=== PATIENT | female | born 1980 | race Caucasian/White ===

== ENCOUNTER 2023-04-10 18:11 | Emergency (ER) | payer BC, SELFPAY ==
[2023-04-10] VITALS (16 sets, daily range): BP systolic 91–101; BP diastolic 56–68; PULSE 71–86; RESP 14; TEMP 37.5; O2SAT 96–99; BMI 19.7
--- NOTE | 2023-04-10 18:22 | ED.GENADULT ---
HPI - General Adult General Chief complaint: Syncope/Fainted Stated complaint: Fall-hit head Time Seen by Provider: 04/10/23 18:22 Source: patient Mode of arrival: EMS Limitations: no limitations History of Present Illness HPI narrative: 42-year-old female coming in today after syncopal episode. Patient and her read a restaurant about to order dinner when she felt nauseated and did feel good. They decided to leave and when she stood up she felt her vision go woozy and she fainted. Her was able to catch her somewhat however, she did hit her head on the way down. She is complaining of a headache. This occurred approximately 1 hour ago. She is not on any blood thinners. She does have a history of eating disorder, anxiety and alcohol use disorder. She does tell me that she has been drinking today. states he believes she has had 3 drinks today. She denies any chest pain now or when this occurred, no shortness of breath, no abdominal discomfort. No ringing in her ears. She states that syncope like this has never happened to her before. Related Data Home Medications Medication Instructions Recorded Confirmed zgdwfdbdlmhu-Ez-yytj-minerals 1 tab PO DAILY 08/22/21 04/10/23 Previous Rx's Medication Instructions Recorded tretinoin 0.025 % topical cream 1 applic topical .Bedtime #20 grams 12/23/22 escitalopram oxalate 10 mg tablet 15 mg (1.5 x 10 mg) PO QDAY #135 03/30/23 tabs Allergies Allergy/AdvReac Type Severity Reaction Status Date / Time No Known Allergies Allergy Unknown Verified 08/23/22 09:38 Review of Systems Status of ROS: Reports: 10 or more systems reviewed and unremarkable except as noted in History and below [facility] Medical History Lump of right breast ?N63.10 - Unspecified lump in the right breast, unspecified quadrant (ICD-10) Surgical History Status post dilation and curettage ?Z98.890 - Other specified postprocedural states (ICD-10) Family History Other Colon cancer Diabetes Leukemia Social History Narrative: Alcohol consumption binge drinking Smoking Status: Never smoker How often do you have a drink containing alcohol: never AUDIT-C Alcohol total score: 0 Non-prescribed substance use: denies use Exam Narrative: Exam Narrative: Well-nourished well-developed patient who looks older than stated age, in no acute distress. Alert and oriented x3. Answers questions appropriately. She does appear to be intoxicated. Thoughts are goal oriented and rational. No tangential or magical thinking noted. Patient speaks in full sentences without needing to catch her breath. Her speech is slurred. HEENT: Normocephalic. Pupils are equally round reactive to light. Extraocular muscles are intact. Conjunctivae are moist and glassy without any icterus noted. Dry mucous membranes. Posterior pharynx is normal. Neck is soft without any lymphadenopathy or thyromegaly. No masses are appreciated. Over the right parietal area she has a small hematoma. Overlying the hematoma is a very small superficial laceration that does not penetrate through the dermis - this small area of broken skin, currently not bleeding. Cardiovascular: Heart is regular rate and rhythm S1 and S2 are present without any murmurs. Lungs: Clear to auscultation bilaterally no wheezes rhonchi or rales are appreciated. Patient takes deep breaths without any discomfort. Abdomen: Soft and nontender nondistended with normal bowel sounds. No guarding or rebound. Extremities: Bilateral lower extremities are without edema. Skin: Well perfused without any obvious rashes. Const: Vital Signs, click to edit/add: Vital Signs - 24 hr 04/10/23 18:16 04/10/23 18:28 04/10/23 18:32 Temperature 99.5 F Pulse Rate 78 Pulse Rate [Pulse Oximeter] 76 Pulse Rate [orthos tatic lying Right Pulse Oximeter] Pulse Rate [orthos tatic sitting Puls e Oximeter] Pulse Rate [orthos tatic standing Rig ht Pulse Oximeter] Respiratory Rate 14 14 Blood Pressure 101/59 L Blood Pressure [Ri ght Upper Arm] 101/68 Blood Pressure [or thostatic lying Ri ght Arm] Blood Pressure [or thostatic sitting Right Arm] Blood Pressure [or thostatic standing Right Arm] Pulse Oximetry 97 98 97 Oxygen Delivery Me thod Room Air 04/10/23 19:01 04/10/23 19:30 04/10/23 19:31 Temperature Pulse Rate 77 77 77 Pulse Rate [Pulse Oximeter] Pulse Rate [orthos tatic lying Right Pulse Oximeter] Pulse Rate [orthos tatic sitting Puls e Oximeter] Pulse Rate [orthos tatic standing Rig ht Pulse Oximeter] Respiratory Rate 14 Blood Pressure 96/61 94/59 L Blood Pressure [Ri ght Upper Arm] Blood Pressure [or thostatic lying Ri ght Arm] Blood Pressure [or thostatic sitting Right Arm] Blood Pressure [or thostatic standing Right Arm] Pulse Oximetry 97 96 97 Oxygen Delivery Mo thod 04/10/23 19:39 04/10/23 19:41 04/10/23 19:43 Temperature Pulse Rate 72 77 74 Pulse Rate [Pulse Oximeter] Pulse Rate [orthos tatic lying Right Pulse Oximeter] Pulse Rate [orthos tatic sitting Puls e Oximeter] Pulse Rate [orthos tatic standing Rig ht Pulse Oximeter] Respiratory Rate Blood Pressure 95/62 93/56 L 91/57 L Blood Pressure [Ri ght Upper Arm] Blood Pressure [or thostatic lying Ri ght Arm] Blood Pressure [or thostatic sitting Right Arm] Blood Pressure [or thostatic standing Right Arm] Pulse Oximetry 98 97 99 Oxygen Delivery Mo thod 04/10/23 19:45 04/10/23 19:45 Temperature Pulse Rate 72 Pulse Rate [Pulse Oximeter] Pulse Rate [orthos tatic lying Right Pulse Oximeter] 71 Pulse Rate [orthos tatic sitting Puls e Oximeter] 86 Pulse Rate [orthos tatic standing Rig ht Pulse Oximeter] 79 Respiratory Rate Blood Pressure Blood Pressure [Ri ght Upper Arm] Blood Pressure [or thostatic lying Ri ght Arm] 95/62 Blood Pressure [or thostatic sitting Right Arm] 93/56 L Blood Pressure [or thostatic standing Right Arm] 91/57 L Pulse Oximetry 97 Oxygen Delivery Mo thod Course Course ED Course: EKG, read by me, shows normal sinus rhythm, pulse 84, inverted P waves in V1 and V2. IV is established and patient given a L of normal saline. Given the hematoma on her scalp, we did proceed with a head CT which is unremarkable. Labs were unremarkable. Patient had no evidence of orthostatic hypotension. Blood pressure did remain slightly low but patient was asymptomatic. Blood alcohol level elevated at 0.13. Vital Signs Vital signs: Initial Vital Signs Temperature 99.5 F 04/10/23 18:16 Temperature Source Temporal Artery Scan 04/10/23 18:16 Pulse Rate 76 04/10/23 18:16 Pulse Rhythm Regular 04/10/23 18:16 Respiratory Rate 14 04/10/23 18:16 Blood Pressure 101/68 04/10/23 18:16 Blood Pressure Mean 79 04/10/23 18:16 Blood Pressure Position Supine 04/10/23 18:16 Pulse Oximetry 97 04/10/23 18:16 Oxygen Delivery Method Room Air 04/10/23 18:16 Vital Signs Temperature 99.5 F 04/10/23 18:16 Pulse Rate 76 04/10/23 18:16 Respiratory Rate 14 04/10/23 18:16 Blood Pressure 101/68 04/10/23 18:16 Pulse Oximetry 97 04/10/23 18:16 Oxygen Delivery Method Room Air 04/10/23 18:16 Temperature 99.5 F 04/10/23 18:16 Pulse Rate 71 04/10/23 19:45 Respiratory Rate 14 04/10/23 19:01 Blood Pressure 95/62 04/10/23 19:45 Pulse Oximetry 96 04/10/23 19:50 Oxygen Delivery Method Room Air 04/10/23 18:16 Medications Administered Medications: Discontinued Medications Generic Name Dose Route Start Last Admin Trade Name Freq PRN Reason Stop Dose Admin Sodium Chloride 1,000 mls @ 1,000 mls/hr 04/10/23 18:30 04/10/23 19:59 0.9 % Sodium Chloride 1000 Ml IV 04/10/23 19:29 Infused .Q1H MILAGRO Infusion Ketorolac Tromethamine 30 mg 04/10/23 18:28 04/10/23 18:52 Ketorolac 30 Mg/Ml Inj IVP 04/10/23 18:29 30 mg ONCE ONE Administration Medical Decision Making MDM Narrative Medical decision making narrative: 42-year-old female status post syncopal episode, acute alcohol intoxication. We discussed rest and hydration today. Patient had no other questions. Lab Data Lab results reviewed: Yes I reviewed the patient's lab results Labs: Lab Results 04/10/23 Range/Units 18:50 WBC 8.83 (4.50-11.00) K/uL RBC 4.36 (4.00-5.20) m/uL Hgb 13.1 (12.0-16.0) gm/dL Hct 38.5 (33.0-51.0) % MCV 88 (80-100) fL MCH 30 (26-34) pg MCHC 34 (32-36) gm/dL RDW Coeff of Lupe 12.7 (11.5-15.5) % Plt Count 232 (140-440) K/uL Neut % (Auto) 77.0 H (42.0-72.0) % Lymph % (Auto) 16.2 L (20-44) % Terry % (Auto) 5.4 (0.0-11.0) % Eos % (Auto) 0.9 (0.0-7.0) % Baso % (Auto) 0.3 (0.0-3.0) % Neut # (Auto) 6.80 (1.7-7.0) K/uL Lymph # (Auto) 1.40 (0.90-2.90) K/uL Terry # (Auto) 0.50 (0.00-0.90) K/UL Eos # (Auto) 0.08 (0.00-0.50) K/uL Baso # (Auto) 0.03 (0.00-0.30) K/uL Abs Immat Gran (auto) 0.02 (0.00-0.30) K/uL Imm/Tot Granulo (auto) 0.2 % Sodium 135 (135-149) mmol/L Potassium 3.6 (3.6-5.1) mmol/L Chloride 102 (96-114) mmol/L Carbon Dioxide 24 (20-32) mmol/L Anion Gap 9 (7-15) mEq/L BUN 14 (5-24) mg/dL Creatinine 0.7 (0.5-1.5) mg/dL Estimated Creat Clear 90.53 Estimated GFR 110 ml/min Glucose 114 (60-115) mg/dL Calcium 8.6 (8.4-10.6) mg/dL Ethyl Alcohol 0.13 H (0.01-0.03) % Imaging Data CT scan - head: Attestation: I have reviewed the pertinent imaging results. Radiologist's impression: Noncontrast head CT. COMPARISON: No prior. FINDINGS: Small area of extracranial soft tissue swelling in the right parietal region. No underlying acute skull fracture. There is no acute intracranial hemorrhage or acute ischemic infarct. No mass effect or midline shift. No hydrocephalus. No acute loss of bolaños-white differentiation. The mastoid air cells are clear. Paranasal sinuses are clear. IMPRESSION: 1. Small area of extracranial soft tissue swelling in the right parietal region. 2. No underlying acute skull fracture. 3. No acute intracranial injury or disease. ECG Data Attestation: I personally reviewed and interpreted this ECG as follows: Discharge Plan Discharge Clinical Impression: Closed head injury, Syncope, Acute alcohol intoxication Patient Disposition: Home, Self-Care Condition: Stable Additional Instructions: No abnormalities noted on your workup today. Blood alcohol level was elevated at 0.13. As far as the small cut on the back of the head, take a warm shower and clean with warm soapy water today. Should start to bleed again just apply gentle pressure to the back of the head. There is nothing there that needed suturing. Rest today, eat nutritious meals and stay well hydrated. Prescriptions: No Action kllvvxekxdjc-Hk-fxhx-minerals Tablet 1 tab PO DAILY tretinoin 0.025 % cream 1 applic topical .Bedtime Qty: 20 0RF Rx Instructions: Apply after gentle skin cleansing. Avoid excess sunlight. escitalopram oxalate 10 mg tablet 15 mg PO QDAY Qty: 135 0RF Follow Up/Referrals: Concepcion Santoyo DIRECTOR OF BUSINESS DEVELOPMENT [Nurse Practitioner] - Stand Alone Forms: MyHealth Info Instructions
--- NOTE | 2023-04-10 18:28 | CT_ITS ---
Final Report Patient: NORMA PARNELL Facility:?[facility] Patient ID:?[id number] Site Patient ID:?[id number]. Site :?[id number] Study:?CT Head WITHOUT-04/10/2023 6:44:16 PM Ordering Physician:TONNY Final Report: HISTORY: Fall. TECHNIQUE: Noncontrast head CT. COMPARISON: No prior. FINDINGS: Small area of extracranial soft tissue swelling in the right parietal region. No underlying acute skull fracture. There is no acute intracranial hemorrhage or acute ischemic infarct. No mass effect or midline shift. No hydrocephalus. No acute loss of bolaños-white differentiation. The mastoid air cells are clear. Paranasal sinuses are clear. IMPRESSION: 1. Small area of extracranial soft tissue swelling in the right parietal region. 2. No underlying acute skull fracture. 3. No acute intracranial injury or disease. Dictated by Michael White MD @ 04/10/2023 7:00:48 PM Please note that all CT scans at this facility use dose modulation, iterative reconstruction, and/or weight-based dosing when appropriate to reduce radiation dose to as low as reasonably achievable. Dictated by: iMchael White MD @ 04/10/2023 19:00:54 (Electronic Signature)
[2023-04-10] MEDS: 0.9 % SODIUM CHLORIDE 1000 ml 1,000 ML IV (18:52)
[2023-04-10] MEDS: KETOROLAC 30 MG/ML inj IVP (18:52)
[2023-04-10 19:01] LABS: Basophils Absolute Auto 0.03 K/uL (0.00-0.30); Basophils Percent Auto 0.3 % (0.0-3.0); Eosinophils Absolute Auto 0.08 K/uL (0.00-0.50); Eosinophils Percent Auto 0.9 % (0.0-7.0); Hematocrit 38.5 % (33.0-51.0); Hemoglobin* 13.1 gm/dL (12.0-16.0); Immature Granulocytes Abs Auto 0.02 K/uL (0.00-0.30); Immature Granulocytes Pct Auto 0.2 %; Lymphocytes Percent Auto 16.2 % (20-44); Mean Corpuscular HGB Conc 34 gm/dL (32-36); Mean Corpuscular Hemoglobin 30 pg (26-34); Mean Corpuscular Volume 88 fL (80-100); Monocytes Percent Auto 5.4 % (0.0-11.0); Platelet Count* 232 K/uL (140-440); RDW Coefficient of Variation % 12.7 % (11.5-15.5); Red Blood Count 4.36 m/uL (4.00-5.20); White Blood Count* 8.83 K/uL (4.50-11.00)
[2023-04-10 19:03] LABS: Slide Review Reflex No
[2023-04-10 19:12] LABS: Chloride* 102 mmol/L (96-114); Sodium* 135 mmol/L (135-149)
[2023-04-10 19:13] LABS: Potassium* 3.6 mmol/L (3.6-5.1)
[2023-04-10 19:15] LABS: Anion Gap 9 mEq/L (7-15); Blood Urea Nitrogen* 14 mg/dL (5-24); Carbon Dioxide* 24 mmol/L (20-32); Creatinine* 0.7 mg/dL (0.5-1.5); Est. Creatinine Clearance* 90.53; Estimated Glomerular Filt Rate 110 ml/min; Ethanol* 0.13 % (0.01-0.03)
[2023-04-10 19:16] LABS: Calcium* 8.6 mg/dL (8.4-10.6); Glucose* 114 mg/dL (60-115)
== END 2023-04-10 20:00 | disposition home or self-care (01) ==
PROVIDERS: Emergency Provider Family Medicine; PCP Family Medicine
DX: S09.90XA Unspecified injury of head, initial encounter (principal); R55 Syncope and collapse; F10.129 Alcohol abuse with intoxication, unspecified; W18.39XA Other fall on same level, initial encounter
CPT/HCPCS: 36415; 70450; 80048; 82077; 85025; 93005; 94761; 96361; 96374; 99284; 99285; J1885; J7030

== ENCOUNTER 2023-06-25 15:25 | Outpatient (CLI) | payer BC, SELFPAY | END 2023-06-25 15:26 | disposition home or self-care (01) | LOC: NFLDREF 07-15 06:09 | PROVIDERS: PCP Family Medicine; Referring Provider Family Medicine; Visit Provider Physician Assistant | DX: N39.0 Urinary tract infection, site not specified (principal) | CPT/HCPCS: 87086; 87186 ==

== ENCOUNTER 2024-08-24 09:10 | Outpatient (CLI) | payer BC, SELFPAY | END 2024-08-24 09:11 | disposition home or self-care (01) | PROVIDERS: PCP Family Medicine; Visit Provider Family Medicine | DX: F41.9 Anxiety disorder, unspecified (principal); R79.89 Other specified abnormal findings of blood chemistry; Z13.6 Encounter for screening for cardiovascular disorders | CPT/HCPCS: 80053; 80061; 84443 ==

== ENCOUNTER 2024-09-27 13:18 | Outpatient (CLI) | payer BC, SELFPAY ==
[2024-09-29 03:53] LABS: HPV Source Cervical/Vag
[2024-10-03 09:23] LABS: Pap Test Digital Imaging Done
== END 2024-09-27 13:19 | disposition home or self-care (01) ==
PROVIDERS: PCP Family Medicine; Visit Provider Family Medicine
DX: Z12.4 Encounter for screening for malignant neoplasm of cervix (principal); Z11.51 Encounter for screening for human papillomavirus (HPV)
CPT/HCPCS: 87624; 87625; 88141; 88142; 88175

== ENCOUNTER 2024-10-30 10:12 | Outpatient (CLI) | payer BC, SELFPAY ==
--- NOTE | 2024-10-30 11:31 | P.ANES_ITS ---
Anesthesia Charges Start Date/Time Anesthesia Start Date: 10/30/24 Anesthesia Start Time: 11:06 Stop Date/Time Anesthesia Stop Date: 10/30/24 Anesthesia Stop Time: 11:28 Coding CPT Codes CPT Codes: STAS LWR INTST SCR COLSC - 01674 ([id number]) P2 - PATIENT W/MILD SYST DISEASE, QX - DRUG SAFETY ASSOCIATE SVC W/ MD MED DIRECTION, QK - MEDICAL DETAIL REPRESENTATIVE 2-4 CNCRNT ANES PROC
--- NOTE | 2024-10-30 11:31 | W.ANESCHARGE ---
Anesthesia Charges Start Date/Time Anesthesia Start Date: 10/30/24 Anesthesia Start Time: 11:06 Stop Date/Time Anesthesia Stop Date: 10/30/24 Anesthesia Stop Time: 11:28 Coding CPT Codes CPT Codes: STAS LWR INTST SCR COLSC - 15292 ([id number]) P2 - PATIENT W/MILD SYST DISEASE, QX - PSYCHIATRY TEACHER SVC W/ MD MED DIRECTION, QK - TENTER FRAME BACK TENDER 2-4 CNCRNT ANES PROC
--- NOTE | 2024-10-30 11:36 | P.ANES_ITS ---
Anesthesia Charges Start Date/Time Anesthesia Start Date: 10/30/24 Anesthesia Start Time: 11:06 Stop Date/Time Anesthesia Stop Date: 10/30/24 Anesthesia Stop Time: 11:28 Coding CPT Codes CPT Codes: STAS LWR INTST SCR COLSC - 46710 ([id number]) P2 - PATIENT W/MILD SYST DISEASE, QK - UNHAIRING INSPECTOR 2-4 CNCRNT ANES PROC, QX - HVAC R INSTRUCTOR SVC W/ MD MED DIRECTION
--- NOTE | 2024-10-30 11:36 | W.ANESCHARGE ---
Anesthesia Charges Start Date/Time Anesthesia Start Date: 10/30/24 Anesthesia Start Time: 11:06 Stop Date/Time Anesthesia Stop Date: 10/30/24 Anesthesia Stop Time: 11:28 Coding CPT Codes CPT Codes: STAS LWR INTST SCR COLSC - 02814 ([id number]) P2 - PATIENT W/MILD SYST DISEASE, QK - SHEET METAL WORK FURNACE INSTALLER 2-4 CNCRNT ANES PROC, QX - POCKET CREASER SVC W/ MD MED DIRECTION
== END 2024-10-30 10:13 | disposition home or self-care (01) ==
LOC: OP CLINIC 10:13
PROVIDERS: PCP Family Medicine; Visit Provider Surgery
DX: Z12.11 Encounter for screening for malignant neoplasm of colon (principal)
CPT/HCPCS: 00812; 45378; J2704

== ENCOUNTER 2025-01-28 07:16 | Emergency (ER) | payer BC, SELFPAY ==
--- OUTSIDE RECORDS SUMMARY | 2025-01-28 07:17 | XMS_ITS | Clinical Summary ---
Author Organization [employer] [facility] Address [address] [place] [address] Care Team Providers Care Emergency Room Specialist Name Role Phone Benny Shah MD Primary Care Provider [phone] Allergies Active AllergyReactionsCriticalityNoted DateCommentsBlood-Group Specific Cyimcelrc08/16/2009 Pt has a non-specific antibody. Blood orders may be delayed. Draw one red top and two purple top tubes for all Type and Screen/Type and Crossmatch orders. Medications MedicationSigDispense QuantityRefillsLast FilledStart DateEnd DateStatus VITAMIN TAB ctive OMEGA 3 ORAL dailyActive WITCH MARCELO-GLYCERIN (HAMAMEL) TOPICAL PADS 1 Each Topical EVERY HOUR NEEDED 60 ctive PHENYLEPH-SHARK SHAKA OIL-MO-PET RECTAL OINTMENT Rectal 4 TIMES A DAY NEEDED 1 ctive DOCUSATE SODIUM 100 MG CAP 100 mg Oral TWICE A DAY 60 ctive MIRALAX 17 GRAM ORAL POWDER PACKET Take daily prn constipation 30 ctive IBUPROFEN 600 MG TAB 600 mg Oral EVERY 6 HOURS NEEDED 60 ctive PROCTOCORT 30 MG RECTAL SUPPOSITORY one pr BID prn pain 30 ctive Active Problems ProblemNoted DateDiagnosed DateDepressive disorder, not elsewhere classified 08/21/2005nxiety state, kkydykjwcrs99/14/9019Ggqpanqi56/14/2006 Overview (08/21/2005): hosp X 5wk [facility]; no current pyschiatrist per pt preference Immunizations ImmunizationAdministration DatesNext DueCOVID-19 vaccine ([employer] 30mcg/0.3mL) PF, V03/21/2020,02/29/2020 Family History Medical HistoryRelationNameCommentsGood HealthFatherGood HealthMotherRelation NameStatusCommentsFatherMother Social History Tobacco UseTypesPacks/DayYears UsedDateSmoking Tobacco: NeverAlcohol UseStandard Drinks/WeekCommentsYes0 (1 standard drink = 0.6 oz pure alcohol)monthlySocial ConnectionsAnswerDate RecordedFrequency of Communication with Friends and Family Not on file3CommentsNoSex and Gender InformationValueDate RecordedSex Assigned at BirthNot on fileLegal EseHuqsvj90/14/2013 5:43 AM AGENCY SALES DEVELOPMENT ASSOCIATE Gender IdentityNot on fileSexual OrientationNot on file Obstetrics History GravidaParaTermPretermABIABSABEctopicMultipleLivingLive [id number] OutcomeGATotal LaborLabor/2nd/4lfGhmpbuAjcPkqlXnbxZHRSjoM3L9GegvPoofRhgyQOkp Opxsbz17/3378XU37c9tAQHpihz DemiseChowDelivery Location:ABNWBirth Comments:D&E with ultrasound guidance, no chromosome abnormalities, IUFD07/27/20111108Oguv63o0c 3.15 kg (6 lb 15 oz)WOjqHrhpfd62HGHZIKN,BBDelivery Location:[facility] Last Filed Vital Signs Vital SignReadingTime TakenCommentsBlood Wnwjsrdk668/6406 8:25 AM CDT Iycmm311407/28/2011 8:25 AM XIYGbeergcftno86 ??C (98.6 ??F)07/28/2011 8:44 AM CDT Respiratory Oxkd505007/28/2011 8:25 AM CDTOxygen Sbhyawgwoj65%07/27/2011 1:15 PM CDTInhaled Oxygen Concentration--Wkvgvg87.3 kg (146 lb 3.2 oz)07/27/2011 8:10 AM PCSXsfzfs540.2 cm (5' 7)07/27/2011 8:10 AM CDTBody Mass Index22.906 8:10 AM CDT Plan of Treatment Health MaintenanceDue DateLast DoneCommentsTetanus gcfgvvo0604/22/1990Depression screening for age 12+1991HIV for age 15-BMI (ht and wt on same day) for age 18+04/22/1997Hepatitis C screening for age 18-7904/22/1997Hepatitis B series for 19+ (1 of 3 - 19+ 3-dose series)04/22/1998HPV series for age 9-45 (1 - 3-dose SCDM series)04/22/2006Pap test for age 21-, 11/04/2017, 09/03/2006, Additional history existsColonoscopy through age 75 04/22/2024Lipids for age 45-Mammogram for age 45-OVID- 19 vaccine series ( - 2024- season)502/12/2020, 02/29/2020Influenza Vaccine (#1)2024Pneumococcal series for age 6-49Aged OutNo longer eligible based on patient's age to complete this topic Procedures Procedure NamePriorityDate/TimeAssociated DiagnosisCommentsGYN THIN PREP PAP SCREEN JTJMCOEmidyke68/27/2018 1:45 PM CDT from Last 3 Months or Most Recently Relevant to Health Maintenance Results * PARADICHLOROBENZENE MACHINE OPERATOR THIN PREP PAP SCREEN IMAGED (11/04/2017 1:45 PM CDT)ComponentValueRef RangeTest MethodAnalysis TimePerformed AtPathologist SignatureCase Report Gynecologic Cytology Report ? Case: [id number] ? Authorizing Provider: ??Ashley Thompson MD ? Collected: ? 11/04/2017 1345 ? First Screen: ?Kierra Stanford ? Received: ?11/08/20171426 ? Specimen: ?PARADICHLOROBENZENE MACHINE OPERATOR ThinPrep Vial Screening, Cervical/Vaginal ? 11/16/2017 11:56 AM [facility] INTERPRETATION/RESULTNEGATIVE FOR INTRAEPITHELIAL LESION OR MALIGNANCY (NIL) (none)11/16/2017 11:56 AM [facility] at 1156 CDTSPECIMEN ADEQUACY Satisfactory for evaluation No endocervical component seen11/16/2017 11:56 AM [facility] REQUESTHPV and PAP11/16/2017 11:56 AM [facility]ORATORYDate of LMP6/16/92744811/16/2017 11:56 AM [facility]OR[facility]ORYLast Pap ResultFirst Pap/Fsibuzo1711/16/2017 11:56 AM [facility]ORATORYAutomated Review Yniadgxztj02/09/2018 11:56 AM [facility] Comment:Specimen processed successfully by automated tool distributor device, ThinPrep Imaging System, [employer]ANCILLARY TESTING GYNHPV Ordered, Please see separate orjlss1511/16/2017 11:56 AM [facility] LABORATORYNoteThe pap test is a screening technique, not a diagnostic procedure. ??It is used primarily to screenfor squamous cancers and precursor lesions. ??Published studies have shown that it is subject to both false negative and false positive results. ??The pap test should not be used as the sole means to diagnose or exclude pre-malignant and malignant lesions. Cytology is screened and interpreted at [facility] - [address], [place] [address] and [facility] - [address]; [place] [address] and [facility] - [address]; [place] [address] and [facility] [address]; [place] [address] 11/16/2017 11:56 AM [facility]TRAL LABORATORYSpecimen (Source)Anatomical Location / LateralityCollection Method / VolumeCollection TimeReceived TimeOther (Cervical/Vaginal)11/04/2017 1:45 PM CDT1 2:26 PM CDT Narrative Authorizing ProviderResult TypeResult StatusMary Génesis Thompson MDPATHOLOGY/CYTOLOGY Final ResultPerforming OrganizationAddressCity/State/ZIP CodePhone Number [facility] [address] [place] [address], from Last 3 Months or Most Recently Relevant to Health Maintenance Advance Directives * Full Code (Latest Code Status on File) Date ActivatedDate InactivatedComments07/27/2011 6:14 PM07/28/2011 8:58 PM * Full Code Date ActivatedDate InactivatedComments07/27/2011 8:27 AM07/27/2011 6:14 PM * Full Code Date ActivatedDate WyhejwcaywkPbtdkzuv85/15/2009 7:57 AM11/23/2008 4:10 AM * Full Code Date ActivatedDate IjbvnxcciqmQszudedx00/15/2009 7:07 AM11/22/2008 7:57 AM * Full Code Date ActivatedDate JkycfcvakziUpmlrmrx36/29/2007 2:30 12/06/2006 11:21 PM Care Teams Team MemberRelationshipSpecialtyStart DateEnd Date Benny Shah MD [facility]06/21/08
[2025-01-28 07:24] VITALS: BP 124/89; PULSE 84; RESP 22; TEMP 37.3; O2SAT 99
--- NOTE | 2025-01-28 08:32 | ED.ANXIETY ---
HPI - Anxiety General Chief Complaint: Anxiety Stated Complaint: Panic attack Time Seen by Provider: 01/28/25 07:55 History of Present Illness HPI narrative: Patient is a 44-year-old woman who awoke in the middle the night with significant panic. She feels extremely anxious and short of breath. Patient is not able to settle down at home and as result was brought to the emergency room. Patient has a known history of anxiety and does take Lexapro daily. She has had no chest pain no orthopnea no PND no other significant symptoms. She feels like she is having a panic attack. No significant risk factors for pulmonary embolism or DVT. No cardiac history. Patient is feeling better now that she is in the emergency room. Related Data Home Medications ?Medication ?Instructions ?Recorded ?Confirmed ekvskcuabfho-Av-yyrb-minerals 1 tab PO DAILY 08/22/21 09/27/24 Previous Rx's ?Medication ?Instructions ?Recorded escitalopram oxalate 10 mg tablet 10 mg PO QDAY #90 tabs 09/27/24 tretinoin 0.025 % topical cream 1 applic topical .Bedtime #45 grams 09/27/24 peg 3350-electrolytes 236 240 ml PO ONCE #4,000 mL 10/26/24 gram-22.74 gram-6.74 gram-5.86 gram solution (Golytely) lorazepam 0.5 mg tablet (Ativan) 0.5 mg PO DAILY PRN #10 tabs 01/28/25 Allergies Allergy/AdvReac Type Severity Reaction Status Date / Time No Known Allergies Allergy Unknown Verified 01/28/25 07:23 Review of Systems Status of ROS: Reports: 10 or more systems reviewed and unremarkable except as noted in History and below [facility] Medical History Hx of anorexia nervosa ?Z86.59 - Personal history of other mental and behavioral disorders (ICD-10) Premenstrual dysphoric disorder ?F32.81 - Premenstrual dysphoric disorder (ICD-10) Acne ?L70.9 - Acne, unspecified (ICD-10) History of eating disorder ?Z86.59 - Personal history of other mental and behavioral disorders (ICD-10) Alcohol dependence, binge pattern (~2021) ?F10.20 - Alcohol dependence, uncomplicated (ICD-10) Anxiety ?F41.9 - Anxiety disorder, unspecified (ICD-10) Surgical History Status post dilation and curettage (~2006) ?Z98.890 - Other specified postprocedural states (ICD-10) Family History Father Alcohol dependence Diabetes High blood pressure Brother Alcohol dependence Paternal Grandfather Alcohol dependence Paternal Grandmother Alcohol dependence Maternal Grandfather Colon cancer, Onset Age: 65 Leukemia Social History Narrative: , 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[employer], 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, lives in [place], 2 teenage boys Exercises by running 4-5 days a week usually 30-40 miles a week, does ultra marathons Never smoker Rare alcohol use No drug use What is your current living situation?: I presently have a place to live Problems where you live: no known problems In the past 12 months, utilities in danger of being shut off: no In past 12 months, lack of transportation kept you from medical appts, meetings, work, or getting things needed for daily living: no In the past 12 mos, have been you worried that your food would run out before you had money to buy more?: never true In the past 12 mos, the food you bought just didn't last and you didn't have money to buy more?: never true Smoking Status: Never smoker Second hand tobacco smoke exposure: No How often do you have a drink containing alcohol: never AUDIT-C Alcohol total score: 0 Non-prescribed substance use: denies use How often does anyone, including family, friends and others, physically hurt you: never How often does anyone, including family, friends and others, insult or talk down to you: never How often does anyone, including family, friends and others, threaten you with harm: never How often does anyone, including family, friends and others, scream or curse at you: never Exam Narrative: Exam Narrative: EXAM GENERAL: Patient appears extremely anxious. EYES: No scleral icterus. LYMPH: No supraclavicular or cervical lymphadenopathy. SKIN: Visible skin seen during exam normal or with benign process only. EXT: No dependent lower extremity pedal edema. HEART: Regular rate and rhythm with no murmurs, rubs, or gallops. LUNGS: Clear to auscultation bilaterally with no crackles or wheezes. ABD: Soft, non tender, non distended. PSYCH: Good eye contact, speech is not pressured. Const: Vital Signs, click to edit/add: Vital Signs - 24 hr 01/28/25 07:24 Temperature 99.1 F Pulse Rate [Pulse Oximeter] 84 Respiratory Rate 22 Blood Pressure [Ri ght Upper Arm] 124/89 Pulse Oximetry 99 Oxygen Delivery Me thod Room Air Course Course ED Course: Patient seen and examined. 1 mg of Ativan given. Will reassess her Vital Signs Vital signs: Initial Vital Signs Temperature 99.1 F 01/28/25 07:24 Temperature Source Temporal Artery Scan 01/28/25 07:24 Pulse Rate 84 01/28/25 07:24 Respiratory Rate 22 01/28/25 07:24 Blood Pressure 124/89 01/28/25 07:24 Blood Pressure Mean 100 01/28/25 07:24 Blood Pressure Position High-Fowlers 01/28/25 07:24 Pulse Oximetry 99 01/28/25 07:24 Oxygen Delivery Method Room Air 01/28/25 07:24 Vital Signs Temperature 99.1 F 01/28/25 07:24 Pulse Rate 84 01/28/25 07:24 Respiratory Rate 22 01/28/25 07:24 Blood Pressure 124/89 01/28/25 07:24 Pulse Oximetry 99 01/28/25 07:24 Oxygen Delivery Method Room Air 01/28/25 07:24 Temperature 99.1 F 01/28/25 07:24 Pulse Rate 84 01/28/25 07:24 Respiratory Rate 22 01/28/25 07:24 Blood Pressure 124/89 01/28/25 07:24 Pulse Oximetry 99 01/28/25 07:24 Oxygen Delivery Method Room Air 01/28/25 07:24 Medications Administered Medications: Discontinued Medications Generic Name Dose Route Start Last Admin Trade Name Freq PRN Reason Stop Dose Admin Lorazepam 1 mg 01/28/25 08:02 01/28/25 08:10 Lorazepam 1 Mg Tablet PO 01/28/25 08:03 1 mg ONCE ONE Administration MDM - Anxiety MDM Narrative Medical decision making narrative: Patient is a 44-year-old woman who comes in today with significant anxiety palpitations shortness of breath. He is significantly improved by the time I see her in the emergency room. Did give her 1 mg of Ativan and she is remarkably improved. Through shared decision-making we elected not to proceed with further evaluation. She will continue her Lexapro I did prescribe limited number of Ativan 0.5 mg daily p.r.n. with follow-up with primary care recommended. Discharge Plan Discharge Clinical Impression: Acute anxiety Patient Disposition: Home, Self-Care Condition: Stable Instructions: Anxiety (ED) Additional Instructions: Continue current medications Ativan as directed Follow-up with your doctor as needed. Activity Level: No Restrictions Discharge Diet: Regular Prescriptions: New lorazepam [Ativan] 0.5 mg tablet 0.5 mg PO DAILY PRNQty: 10 0RF No Action escitalopram oxalate 10 mg tablet 10 mg PO QDAY Qty: 90 3RF tretinoin 0.025 % cream 1 applic topical .Bedtime Qty: 45 1RF Rx Instructions: Apply after gentle skin cleansing. Avoid excess sunlight. bmhdwdckrkfw-Tc-zavp-minerals Tablet 1 tab PO DAILY peg 3350-electrolytes [Golytely] 236-22.74-6.74 -5.86 gram recon soln 240 ml PO ONCE Qty: 4000 0RF Rx Instructions: 4pm day prior to procedure. Drink 8oz glass every 15 minutes until 1/2 of solution is gone. 6 hours prior to your procedure time drink 8oz glass every 15 minutes until remaining solution is gone. Follow Up/Referrals: Stephanie Hickey MD [Primary Care Provider, Family Practice] Stand Alone Forms: [employer] Info Instructions
[2025-01-28 09:05] VITALS: PULSE 78; RESP 16; O2SAT 99
== END 2025-01-28 09:13 | disposition home or self-care (01) ==
PROVIDERS: Emergency Provider Internal Medicine; PCP Family Medicine
DX: F41.9 Anxiety disorder, unspecified (principal)
CPT/HCPCS: 99283; A9270